=== PATIENT | female | born 1945 | race Caucasian/White ===

== ENCOUNTER 2022-02-07 20:42 | Inpatient (IN) | payer MEDICARE, OTHER ==
[2022-02-08] MEDS: Sodium Chloride 0.9% 1,000 ML IV SCH ×2 (01:04→13:00)
[2022-02-08] MEDS ORDERED: Ondansetron PF 4 MG/2 ML Vial IVP PRN (01:36)
[2022-02-08] MEDS ORDERED: Acetaminophen 325 MG TAB PO PRN (01:36)
[2022-02-08] MEDS ORDERED: Ondansetron ODT 4 MG TAB PO PRN (01:36)
[2022-02-08] MEDS ORDERED: Dextrose 5% in Water 1,000 ML IV PRN (01:36)
[2022-02-08] MEDS ORDERED: Acetaminophen 325 MG Suppository PR PRN (01:36)
[2022-02-08] MEDS ORDERED: Dextrose 50% Abboject 50 ML SYRINGE SLOW IVP PRN (01:36)
[2022-02-08] MEDS ORDERED: HumaLOG 300 UNITS/3 ML VIAL SC PRN ×2 (01:36)
[2022-02-08 03:03] LABS: #Lymphocytes 1.6 thou/uL (1.20-3.40); #Monocytes 1.1 thou/uL (0.11-0.59); #Neutrophils 6.7 thou/uL (1.40-6.50); %Basophils 0.5 % (0.0-1.0); %Eosinophils 0.2 % (0.0-10.0); %Monocytes 11.6 % (0.0-10.0); %Neutrophils 70.7 % (42.0-75.0); Mean Corpuscular HGB CONC 32.9 g/dL (32.0-36.0); Mean Corpuscular Hemoglobin 31.1 pg (27.0-31.0); Mean Corpuscular Volume 94.7 fL (78.0-98.0); Mean Platelet Volume 8.1 fL (7.4-10.4); Platelet Count 210 thou/uL (130-400); RBC Distribution Width 13.3 % (11.5-14.5); Red Blood Cell (RBC) Count 2.25 mill/uL (4.20-5.40); White Blood Cell (WBC) Count 9.5 thou/uL (4.8-10.8)
[2022-02-08 03:25] LABS: Anion Gap 13 mmol/L (10-20); BUN (Urea Nitrogen) 48 mg/dL (9.8-20.1); Calc. Creatinine Clearance 0 mL/min (70-130); Calcium 8.5 mg/dL (7.8-10.44); Carbon Dioxide 18 mmol/L (23-31); Chloride 112 mmol/L (98-107); Estimated GFR 64; Glucose 176 mg/dL (83-110); Potassium 4.1 mmol/L (3.5-5.1); Sodium 139 mmol/L (136-145)
[2022-02-08] MEDS: Pantoprazole 40 MG VIAL IVP SCH ×2 (07:24→20:01)
[2022-02-08] MEDS ORDERED: FLU VACC QS2022-23(65YR UP)/PF 240 MCG/0.7 ML SYRINGE IM ONE (09:00)
[2022-02-08 10:22] LABS: Hemoglobin 6.8 g/dL (12.0-16.0)
[2022-02-08] MEDS ORDERED: Fentanyl 100 MCG/2 ML VIAL ONE (14:49)
[2022-02-08] MEDS ORDERED: PHENYLEPHRINE-NS 100 MCG/ML 10 ML SYRINGE ONE (15:04)
[2022-02-08] MEDS ORDERED: PROPOFOL 200 MG/20 ML VIAL ONE (15:04)
[2022-02-08] MEDS ORDERED: GoLYTELY 4,000 ml Bottle PO SCH (16:06)
[2022-02-08 16:32] LABS: Hemoglobin 7.6 g/dL (12.0-16.0); Platelet Count 174 thou/uL (130-400)
[2022-02-09] MEDS: Sodium Chloride 0.9% 1,000 ML IV SCH ×3 (02:38→16:52)
[2022-02-09] MEDS: Pantoprazole 40 MG VIAL IVP SCH (07:56)
[2022-02-09 08:22] LABS: Hemoglobin 7.6 g/dL (12.0-16.0)
[2022-02-09 08:53] LABS: Anion Gap 13 mmol/L (10-20); BUN (Urea Nitrogen) 29 mg/dL (9.8-20.1); Calc. Creatinine Clearance 0 mL/min (70-130); Calcium 8.4 mg/dL (7.8-10.44); Carbon Dioxide 20 mmol/L (23-31); Chloride 113 mmol/L (98-107); Estimated GFR 71; Glucose 190 mg/dL (83-110); Potassium 3.8 mmol/L (3.5-5.1); Sodium 142 mmol/L (136-145)
[2022-02-09] MEDS ORDERED: PROPOFOL 200 MG/20 ML VIAL ONE (11:09)
[2022-02-09] MEDS ORDERED: Ondansetron HCl/PF 4 MG/2 ML Vial IVP PRN (11:19)
[2022-02-09 12:17] VITALS: BMI 33.0
[2022-02-09] MEDS ORDERED: Iron, Sodium Ferric Gluconate 250 MG in Sodium Chloride 0.9% 250 ML 250 ML IVPB SCH (14:00)
[2022-02-09] MEDS: Labetalol HCl 100 MG TAB PO SCH (20:41)
[2022-02-09] MEDS ORDERED: NIFEdipine XL 60 MG TAB PO SCH (21:00)
[2022-02-09] MEDS ORDERED: Cyanocobalamin (Vitamin B-12) 1,000 MCG TAB PO SCH (21:00)
[2022-02-09] MEDS: traMADol HCl 50 MG TAB PO PRN (21:20)
[2022-02-10] MEDS: traMADol HCl 50 MG TAB PO PRN ×2 (06:09→15:07)
[2022-02-10 06:56] LABS: Anion Gap 13 mmol/L (10-20); BUN (Urea Nitrogen) 26 mg/dL (9.8-20.1); Calc. Creatinine Clearance 74 mL/min (70-130); Calcium 8.2 mg/dL (7.8-10.44); Carbon Dioxide 20 mmol/L (23-31); Chloride 110 mmol/L (98-107); Estimated GFR 70; Glucose 181 mg/dL (83-110); Potassium 3.5 mmol/L (3.5-5.1); Sodium 139 mmol/L (136-145)
[2022-02-10 07:20] LABS: Hemoglobin 7.2 g/dL (12.0-16.0); Mean Corpuscular HGB CONC 32.2 g/dL (32.0-36.0); Mean Corpuscular Hemoglobin 29.7 pg (27.0-31.0); Mean Corpuscular Volume 92.4 fl (78.0-98.0); Mean Platelet Volume 9.2 fL (7.4-10.4); Platelet Count 171 thou/uL (130-400); RBC Distribution Width 19.3 % (11.5-14.5); Red Blood Cell (RBC) Count 2.42 mill/uL (4.20-5.40); White Blood Cell (WBC) Count 12.3 thou/uL (4.8-10.8)
[2022-02-10 07:56] LABS: Anisocytosis MODERATE=16-30 cells (100X) (0-5/hpf); Band 4 % (5-11); Lymphocytes 20 % (21-51); MDiff Complete? YES; Metamyelocyte 1 % (0-0); Monocytes 6 % (0-10); Neutrophil 67 % (42-75); Nucleated RBC 3 % (0); Platelet Morphology Comment Appears Adequate; Polychromasia MODERATE = 3-4 cells (100X) (0-2/hpf); Reactive Lymphocytes 1 % (0-10)
[2022-02-10] MEDS ORDERED: Pioglitazone HCl 15 MG TAB PO SCH (09:00)
[2022-02-10] MEDS ORDERED: Atorvastatin Calcium 40 MG TAB PO SCH (09:00)
[2022-02-10] MEDS ORDERED: Cholecalciferol 1,000 UNITS (25 MCG) TAB PO SCH (09:00)
[2022-02-10] MEDS: Labetalol HCl 100 MG TAB PO SCH (09:35)
[2022-02-10 14:04] LABS: Bacteria/HPF None Seen HPF (None Seen); Bilirubin Negative (Negative); Blood, Urine Negative (Negative); Clarity Clear (Clear); Glucose, Urine (Dipstick) Normal (Negative); Ketone, Urine Negative (Negative); Leukocyte 500 Leu/uL (Negative); Nitrite Negative (Negative); Protein, Urine (Dipstick) 50 mg/dL (Neg-Trace); RBC/HPF 0-3 HPF (0-3); Specific Gravity, Urine 1.028 (1.002-1.036); Urobilinogen Normal mg/dL (Less than 2); WBC/HPF 21-50 HPF (0-3)
[2022-02-10 14:07] LABS: Urine Culture Reflex No No
[2022-02-10 17:45] VITALS: BP 143/81; TEMP 97.9
== END 2022-02-10 18:27 | disposition home or self-care (01) | DRG 378 ==
LOC: T4-B 23:14
PROVIDERS: ADMIT Student in an Organized Health Care Education/Training Program; ATTEND Hospitalist
PROC: 0DB68ZX Excision of Stomach, Via Natural or Artificial Opening Endoscopic, Diagnostic (ICD-10-PCS; 2022-02-08)
PROC: 0DJD8ZZ Inspection of Lower Intestinal Tract, Via Natural or Artificial Opening Endoscopic (ICD-10-PCS; 2022-02-09)
PROC: 30233N1 Transfusion of Nonautologous Red Blood Cells into Peripheral Vein, Percutaneous Approach (ICD-10-PCS; principal; 2022-02-10)
DX: K25.4 Chronic or unspecified gastric ulcer with hemorrhage (principal); D62 Acute posthemorrhagic anemia; N39.0 Urinary tract infection, site not specified; I10 Essential (primary) hypertension; E11.9 Type 2 diabetes mellitus without complications; K21.9 Gastro-esophageal reflux disease without esophagitis; E66.9 Obesity, unspecified; G89.29 Other chronic pain; M54.50 Low back pain, unspecified; Z79.82 Long term (current) use of aspirin; Z79.84 Long term (current) use of oral hypoglycemic drugs; Z79.899 Other long term (current) drug therapy; Z88.8 Allergy status to other drugs, medicaments and biological substances; Z88.6 Allergy status to analgesic agent; Z68.33 Body mass index [BMI] 33.0-33.9, adult; K44.9 Diaphragmatic hernia without obstruction or gangrene; K57.30 Diverticulosis of large intestine without perforation or abscess without bleeding
CPT/HCPCS: 36415; 36416; 36430; 71045; 80048; 81001; 85014; 85018; 85025; 86850; 86900; 86901; 88305; C9113; J2405; J2704; J2916; J3010; J7050; P9016

== ENCOUNTER 2023-02-18 18:58 | Inpatient (IN) | payer MEDICARE, OTHER ==
[2023-02-18] MEDS ORDERED: HYDROcodone/Acetaminophen 5/325 mg Tablet ONE (19:49)
[2023-02-18 19:56] LABS: #Basophils 0.1 thou/uL (0.0-0.2); #Eosinphils 0.1 thou/uL (0.0-0.7); #Monocytes 0.7 thou/uL (0.11-0.59); #Neutrophils 8.9 thou/uL (1.40-6.50); %Basophils 0.5 % (0.0-1.0); %Eosinophils 0.5 % (0.0-10.0); %Lymphocytes 10.5 % (21.0-51.0); %Monocytes 6.5 % (0.0-10.0); %Neutrophils 81.2 % (42.0-75.0); Hematocrit 42.5 % (36.0-47.0); Hemoglobin 13.7 g/dL (12.0-16.0); Mean Corpuscular HGB CONC 32.2 g/dL (32.0-36.0); Mean Corpuscular Hemoglobin 29.7 pg (27.0-31.0); Mean Corpuscular Volume 92.2 fl (78.0-98.0); Mean Platelet Volume 10.1 fL (7.4-10.4); Platelet Count 310 10x3/uL (130-400); RBC Distribution Width 14.4 % (11.5-14.5); Red Blood Cell (RBC) Count 4.61 mill/uL (4.20-5.40)
[2023-02-18 20:09] LABS: INR-International Normal Ratio 1.2; PTT 28.8 sec (22.9-36.1); Prothrombin Time 16.1 sec (12.0-14.7)
[2023-02-18 20:19] LABS: ALT (SGPT) 20 U/L (8-55); AST (SGOT) 20 U/L (5-34); Albumin 4.7 g/dL (3.4-4.8); Alkaline Phosphatase 101 U/L (40-110); Anion Gap 18 mmol/L (10-20); BUN (Urea Nitrogen) 32 mg/dL (9.8-20.1); Bilirubin, Total 0.4 mg/dL (0.2-1.2); Calc. Creatinine Clearance 0 mL/min (70-130); Calcium 9.5 mg/dL (7.8-10.44); Carbon Dioxide 23 mmol/L (23-31); Chloride 104 mmol/L (98-107); Estimated GFR 42; Globulin 2.4 g/dL (2.4-3.5); Glucose 183 mg/dL (83-110); Potassium 4.1 mmol/L (3.5-5.1); Protein, Total 7.1 g/dL (5.8-8.1); Sodium 141 mmol/L (136-145)
[2023-02-18] MEDS ORDERED: Morphine 4 MG/ML VIAL ONE (21:58)
[2023-02-18 22:52] VITALS: BMI 33.5
[2023-02-18] MEDS ORDERED: hydrALAZINE 20 MG/ML VIAL SLOW IVP PRN ×2 (23:45→23:48)
[2023-02-18] MEDS ORDERED: Morphine 2 MG/ML VIAL SLOW IVP PRN (23:45)
[2023-02-19] MEDS: Ketorolac Tromethamine 30 MG/ML VIAL IVP SCH ×4 (00:13→23:34)
[2023-02-19] MEDS: Acetaminophen 500 MG TAB PO SCH ×5 (00:14→23:33)
[2023-02-19] MEDS: traMADol HCl 50 MG TAB PO SCH ×5 (00:14→23:34)
[2023-02-19] MEDS: hydrALAZINE 10 MG TAB PO PRN ×2 (00:29→21:15)
[2023-02-19] MEDS: Morphine 2 MG/ML VIAL SLOW IVP PRN ×2 (02:04→06:21)
[2023-02-19] MEDS ORDERED: Ondansetron PF 4 MG/2 ML Vial IVP PRN (05:45)
[2023-02-19] MEDS ORDERED: Ipratropium/Albuterol 3 ML NEB NEB PRN (05:45)
[2023-02-19] MEDS ORDERED: traMADol HCl 50 MG TAB PO PRN (05:47)
[2023-02-19] MEDS: Sodium Chloride 0.9% 1,000 ML IV SCH ×3 (06:20→22:32)
[2023-02-19] MEDS: NIFEdipine XL 30 MG ER.TAB PO SCH (08:25)
[2023-02-19] MEDS: Amiodarone 200 MG TAB PO SCH (08:26)
[2023-02-19] MEDS: Atorvastatin Calcium 40 MG TAB PO SCH (08:26)
[2023-02-19] MEDS: Senokot S 8.6-50 MG TAB PO SCH ×2 (08:26→21:11)
[2023-02-19] MEDS: Famotidine/PF 20 mg/2ml Vial SLOW IVP SCH (08:27)
[2023-02-19] MEDS: Polyethylene Glycol 3350 17 GM Packet PO SCH (08:27)
[2023-02-20 05:36] LABS: #Basophils 0.1 thou/uL (0.0-0.2); #Eosinphils 0.4 thou/uL (0.0-0.7); #Neutrophils 6.5 thou/uL (1.40-6.50); %Basophils 0.7 % (0.0-1.0); %Eosinophils 4.3 % (0.0-10.0); %Lymphocytes 8.5 % (21.0-51.0); %Monocytes 11.4 % (0.0-10.0); %Neutrophils 74.6 % (42.0-75.0); Mean Corpuscular HGB CONC 31.2 g/dL (32.0-36.0); Mean Corpuscular Hemoglobin 29.5 pg (27.0-31.0); Mean Corpuscular Volume 94.7 fl (78.0-98.0); Mean Platelet Volume 10.3 fL (7.4-10.4); Platelet Count 204 10x3/uL (130-400); RBC Distribution Width 14.6 % (11.5-14.5); Red Blood Cell (RBC) Count 3.59 mill/uL (4.20-5.40); White Blood Cell (WBC) Count 8.8 10x3/uL (4.8-10.8)
[2023-02-20 05:51] LABS: INR-International Normal Ratio 1.1; PTT 36.8 sec (22.9-36.1); Prothrombin Time 14.7 sec (12.0-14.7)
[2023-02-20] MEDS: Acetaminophen 500 MG TAB PO SCH ×3 (05:51→17:14)
[2023-02-20] MEDS: Sodium Chloride 0.9% 1,000 ML IV SCH ×3 (05:51→21:48)
[2023-02-20] MEDS: traMADol HCl 50 MG TAB PO SCH ×3 (05:51→17:15)
[2023-02-20 06:01] LABS: Anion Gap 16 mmol/L (10-20); BUN (Urea Nitrogen) 26 mg/dL (9.8-20.1); Calc. Creatinine Clearance 59 mL/min (70-130); Calcium 8.5 mg/dL (7.8-10.44); Carbon Dioxide 22 mmol/L (23-31); Chloride 108 mmol/L (98-107); Estimated GFR 58; Glucose 177 mg/dL (83-110); Potassium 3.9 mmol/L (3.5-5.1); Sodium 142 mmol/L (136-145)
[2023-02-20 06:26] LABS: Hemoglobin 10.6 g/dL (12.0-16.0)
[2023-02-20] MEDS: Ketorolac Tromethamine 30 MG/ML VIAL IVP SCH ×2 (08:15→15:09)
[2023-02-20] MEDS: Famotidine/PF 20 mg/2ml Vial SLOW IVP SCH (08:16)
[2023-02-20] MEDS: Amiodarone 200 MG TAB PO SCH (08:16)
[2023-02-20] MEDS: NIFEdipine XL 30 MG ER.TAB PO SCH (08:16)
[2023-02-20] MEDS: Polyethylene Glycol 3350 17 GM Packet PO SCH (08:16)
[2023-02-20] MEDS: Atorvastatin Calcium 40 MG TAB PO SCH (08:16)
[2023-02-20] MEDS: Senokot S 8.6-50 MG TAB PO SCH ×2 (08:16→21:34)
[2023-02-20] MEDS ORDERED: CEFAZOLIN 2 GM in Sodium Chloride 0.9% 100 ML IVPB SCH (08:45)
[2023-02-20] MEDS ORDERED: Sodium Chloride 0.9% 100 ML ONE (09:37)
[2023-02-20] MEDS ORDERED: CEFAZOLIN 2 GM VIAL ONE (09:37)
[2023-02-20] MEDS: Losartan 25 MG TAB PO SCH ×2 (10:02→21:34)
[2023-02-20] MEDS ORDERED: Fentanyl 250 MCG/5 ML VIAL ONE (10:35)
[2023-02-20] MEDS ORDERED: Lidocaine 1% PF 5 ML VIAL ONE (10:50)
[2023-02-20] MEDS ORDERED: Rocuronium Bromide 10 MG/ML (10ML VIAL) ONE (10:50)
[2023-02-20] MEDS ORDERED: Ketorolac Tromethamine 30 MG/ML VIAL ONE (10:50)
[2023-02-20] MEDS ORDERED: Dexamethasone 20 MG/5 ML VIAL ONE (10:50)
[2023-02-20] MEDS ORDERED: PROPOFOL 200 MG/20 ML VIAL ONE (10:50)
[2023-02-20] MEDS ORDERED: ePHEDrine Sulfate 50 MG/10 ML VIAL ONE (10:50)
[2023-02-20] MEDS ORDERED: Ondansetron PF 4 MG/2 ML Vial ONE (10:50)
[2023-02-20] MEDS ORDERED: SUGAMMADEX SODIUM 200 MG/2 ML VIAL ONE (11:29)
[2023-02-20] MEDS ORDERED: Promethazine HCl 25 MG/ML VIAL IM PRN (11:32)
[2023-02-20] MEDS ORDERED: Ketorolac Tromethamine 30 MG/ML VIAL IVP PRN (11:32)
[2023-02-20] MEDS ORDERED: Ondansetron HCl/PF 4 MG/2 ML Vial IVP PRN (11:32)
[2023-02-20] MEDS ORDERED: Losartan 25 MG TAB PO SCH (15:00)
[2023-02-20] MEDS ORDERED: hydrALAZINE 20 MG/ML VIAL SLOW IVP SCH (15:00)
[2023-02-20] MEDS: CEFAZOLIN 2 GM in Sodium Chloride 0.9% 100 ML IVPB SCH (17:14)
[2023-02-21] MEDS: Ketorolac Tromethamine 30 MG/ML VIAL IVP SCH ×3 (00:01→15:09)
[2023-02-21] MEDS: CEFAZOLIN 2 GM in Sodium Chloride 0.9% 100 ML IVPB SCH (01:58)
[2023-02-21] MEDS: traMADol HCl 50 MG TAB PO SCH ×2 (06:11)
[2023-02-21] MEDS: Acetaminophen 500 MG TAB PO SCH ×2 (06:11)
[2023-02-21] MEDS: Sodium Chloride 0.9% 1,000 ML IV SCH (07:35)
[2023-02-21] MEDS: Losartan 25 MG TAB PO SCH ×2 (08:20→21:19)
[2023-02-21] MEDS: Polyethylene Glycol 3350 17 GM Packet PO SCH (08:20)
[2023-02-21] MEDS: NIFEdipine XL 30 MG ER.TAB PO SCH (08:20)
[2023-02-21] MEDS: Amiodarone 200 MG TAB PO SCH (08:20)
[2023-02-21] MEDS: Senokot S 8.6-50 MG TAB PO SCH ×2 (08:20→21:18)
[2023-02-21] MEDS: Famotidine/PF 20 mg/2ml Vial SLOW IVP SCH (08:21)
[2023-02-21] MEDS: Atorvastatin Calcium 40 MG TAB PO SCH (08:21)
[2023-02-21] MEDS: Acetaminophen/Codeine 30-300mg Tablet PO SCH ×3 (09:29→21:19)
[2023-02-21] MEDS: Acetaminophen 325 MG TAB PO SCH ×3 (09:32→21:20)
[2023-02-21] MEDS: Gabapentin 100 MG CAP PO SCH ×2 (15:08→21:20)
[2023-02-22] MEDS: Ketorolac Tromethamine 30 MG/ML VIAL IVP SCH (00:02)
[2023-02-22] MEDS: Acetaminophen/Codeine 30-300mg Tablet PO SCH ×4 (04:41→23:01)
[2023-02-22] MEDS: Acetaminophen 325 MG TAB PO SCH ×4 (04:44→23:04)
[2023-02-22 07:51] LABS: #Eosinphils 0.4 thou/uL (0.0-0.7); #Monocytes 0.9 thou/uL (0.11-0.59); #Neutrophils 4.8 thou/uL (1.40-6.50); %Basophils 0.6 % (0.0-1.0); %Eosinophils 5.7 % (0.0-10.0); %Lymphocytes 13.1 % (21.0-51.0); %Monocytes 12.4 % (0.0-10.0); %Neutrophils 67.5 % (42.0-75.0); Hemoglobin 6.5 g/dL (12.0-16.0); Mean Corpuscular Hemoglobin 29.7 pg (27.0-31.0); Mean Corpuscular Volume 95.9 fl (78.0-98.0); Mean Platelet Volume 10.8 fL (7.4-10.4); Platelet Count 186 10x3/uL (130-400); RBC Distribution Width 15.2 % (11.5-14.5); Red Blood Cell (RBC) Count 2.19 mill/uL (4.20-5.40)
[2023-02-22] MEDS: Atorvastatin Calcium 40 MG TAB PO SCH (09:05)
[2023-02-22] MEDS: Famotidine/PF 20 mg/2ml Vial SLOW IVP SCH (09:05)
[2023-02-22] MEDS: Senokot S 8.6-50 MG TAB PO SCH ×2 (09:05→20:48)
[2023-02-22] MEDS: Amiodarone 200 MG TAB PO SCH (09:06)
[2023-02-22] MEDS: Gabapentin 100 MG CAP PO SCH ×3 (09:07→20:48)
[2023-02-22] MEDS: Losartan 25 MG TAB PO SCH ×2 (09:07→20:48)
[2023-02-22] MEDS: NIFEdipine XL 30 MG ER.TAB PO SCH (09:08)
[2023-02-22] MEDS: Polyethylene Glycol 3350 17 GM Packet PO SCH (09:17)
[2023-02-22] MEDS ORDERED: Furosemide 20 MG TAB PO SCH (11:15)
[2023-02-22] MEDS: Furosemide 20 MG TAB PO SCH (14:23)
[2023-02-22 19:14] LABS: #Basophils 0.1 thou/uL (0.0-0.2); #Eosinphils 0.5 thou/uL (0.0-0.7); #Monocytes 1.2 thou/uL (0.11-0.59); #Neutrophils 5.7 thou/uL (1.40-6.50); %Basophils 0.7 % (0.0-1.0); %Eosinophils 5.5 % (0.0-10.0); %Lymphocytes 15.2 % (21.0-51.0); %Monocytes 13.6 % (0.0-10.0); %Neutrophils 63.9 % (42.0-75.0); Hematocrit 28.3 % (36.0-47.0); Hemoglobin 8.8 g/dL (12.0-16.0); Mean Corpuscular HGB CONC 31.1 g/dL (32.0-36.0); Mean Corpuscular Hemoglobin 29.8 pg (27.0-31.0); Mean Corpuscular Volume 95.9 fl (78.0-98.0); Mean Platelet Volume 10.5 fL (7.4-10.4); Platelet Count 228 10x3/uL (130-400); RBC Distribution Width 15.9 % (11.5-14.5); Red Blood Cell (RBC) Count 2.95 mill/uL (4.20-5.40); White Blood Cell (WBC) Count 8.9 10x3/uL (4.8-10.8)
[2023-02-22] MEDS: Cyanocobalamin (Vitamin B-12) 1,000 MCG TAB PO SCH (20:48)
[2023-02-22] MEDS ORDERED: Apixaban 5 MG TAB PO SCH (21:00)
[2023-02-23] MEDS: Acetaminophen 325 MG TAB PO SCH ×4 (04:14→21:57)
[2023-02-23] MEDS: Acetaminophen/Codeine 30-300mg Tablet PO SCH ×4 (04:15→21:57)
[2023-02-23 06:13] LABS: #Eosinphils 0.4 thou/uL (0.0-0.7); #Monocytes 1.1 thou/uL (0.11-0.59); #Neutrophils 4.7 thou/uL (1.40-6.50); %Basophils 0.5 % (0.0-1.0); %Eosinophils 5.4 % (0.0-10.0); %Lymphocytes 14.3 % (21.0-51.0); %Monocytes 14.4 % (0.0-10.0); %Neutrophils 63.8 % (42.0-75.0); Hematocrit 24.3 % (36.0-47.0); Hemoglobin 7.7 g/dL (12.0-16.0); Mean Corpuscular HGB CONC 31.7 g/dL (32.0-36.0); Mean Corpuscular Hemoglobin 29.7 pg (27.0-31.0); Mean Corpuscular Volume 93.8 fl (78.0-98.0); Mean Platelet Volume 10.4 fL (7.4-10.4); Platelet Count 198 10x3/uL (130-400); Red Blood Cell (RBC) Count 2.59 mill/uL (4.20-5.40); White Blood Cell (WBC) Count 7.4 10x3/uL (4.8-10.8)
[2023-02-23] MEDS: Gabapentin 100 MG CAP PO SCH ×3 (09:04→20:12)
[2023-02-23] MEDS: Losartan 25 MG TAB PO SCH ×2 (09:05→20:12)
[2023-02-23] MEDS: Aspirin Chewable 81 MG TAB PO SCH (09:05)
[2023-02-23] MEDS: Furosemide 20 MG TAB PO SCH ×2 (09:05→15:16)
[2023-02-23] MEDS: Cholecalciferol 1,000 UNITS (25 MCG) TAB PO SCH (09:05)
[2023-02-23] MEDS: Polyethylene Glycol 3350 17 GM Packet PO SCH (09:06)
[2023-02-23] MEDS: Atorvastatin Calcium 40 MG TAB PO SCH (09:06)
[2023-02-23] MEDS: Amiodarone 200 MG TAB PO SCH (09:06)
[2023-02-23] MEDS: Senokot S 8.6-50 MG TAB PO SCH ×2 (09:06→20:12)
[2023-02-23] MEDS: NIFEdipine XL 30 MG ER.TAB PO SCH (09:06)
[2023-02-23 18:55] LABS: Anion Gap 15 mmol/L (10-20); BUN (Urea Nitrogen) 28 mg/dL (9.8-20.1); Calc. Creatinine Clearance 67 mL/min (70-130); Calcium 8.3 mg/dL (7.8-10.44); Carbon Dioxide 22 mmol/L (23-31); Chloride 105 mmol/L (98-107); Estimated GFR 66; Glucose 161 mg/dL (83-110); Magnesium 2.2 mg/dL (1.6-2.6); Phosphorus 3.8 mg/dL (2.3-4.7); Potassium 4.3 mmol/L (3.5-5.1); Sodium 138 mmol/L (136-145)
[2023-02-23] MEDS: Cyanocobalamin (Vitamin B-12) 1,000 MCG TAB PO SCH (20:12)
[2023-02-23] MEDS: Cyclobenzaprine 10 MG TAB PO PRN (20:16)
[2023-02-24] MEDS: Acetaminophen/Codeine 30-300mg Tablet PO SCH ×5 (03:51→23:00)
[2023-02-24] MEDS: Acetaminophen 325 MG TAB PO SCH ×5 (03:52→23:00)
[2023-02-24] MEDS ORDERED: Morphine 2 MG/ML VIAL SLOW IVP PRN (04:28)
[2023-02-24] MEDS ORDERED: Ketorolac Tromethamine 30 MG/ML VIAL IVP SCH (07:56)
[2023-02-24 08:11] LABS: Anion Gap 19 mmol/L (10-20); BUN (Urea Nitrogen) 28 mg/dL (9.8-20.1); Calc. Creatinine Clearance 66 mL/min (70-130); Calcium 8.6 mg/dL (7.8-10.44); Carbon Dioxide 15 mmol/L (23-31); Chloride 106 mmol/L (98-107); Estimated GFR 66; Glucose 178 mg/dL (83-110); Potassium 5.3 mmol/L (3.5-5.1); Sodium 135 mmol/L (136-145)
[2023-02-24] MEDS ORDERED: Magnesium Citrate 300 ML BOT PO SCH (08:30)
[2023-02-24] MEDS: Amiodarone 200 MG TAB PO SCH (09:12)
[2023-02-24] MEDS: Aspirin Chewable 81 MG TAB PO SCH (09:13)
[2023-02-24] MEDS: Senokot S 8.6-50 MG TAB PO SCH ×2 (09:13→20:30)
[2023-02-24] MEDS: Polyethylene Glycol 3350 17 GM Packet PO SCH (09:13)
[2023-02-24] MEDS: Gabapentin 100 MG CAP PO SCH ×3 (09:15→20:28)
[2023-02-24] MEDS: Losartan 25 MG TAB PO SCH ×2 (09:15→20:30)
[2023-02-24] MEDS: Atorvastatin Calcium 40 MG TAB PO SCH (09:15)
[2023-02-24] MEDS: Furosemide 20 MG TAB PO SCH ×2 (09:15→15:13)
[2023-02-24] MEDS: Cholecalciferol 1,000 UNITS (25 MCG) TAB PO SCH (09:15)
[2023-02-24] MEDS: NIFEdipine XL 30 MG ER.TAB PO SCH (09:16)
[2023-02-24 09:26] LABS: Phosphorus 4.5 mg/dL (2.3-4.7)
[2023-02-24 09:27] LABS: Magnesium 2.3 mg/dL (1.6-2.6)
[2023-02-24 10:55] LABS: #Eosinphils 0.3 thou/uL (0.0-0.7); #Neutrophils 4.3 thou/uL (1.40-6.50); %Basophils 0.3 % (0.0-1.0); %Eosinophils 4.5 % (0.0-10.0); %Lymphocytes 15.9 % (21.0-51.0); %Monocytes 14.1 % (0.0-10.0); %Neutrophils 63.3 % (42.0-75.0); Hematocrit 27.2 % (36.0-47.0); Hemoglobin 8.3 g/dL (12.0-16.0); Mean Corpuscular HGB CONC 30.5 g/dL (32.0-36.0); Mean Corpuscular Hemoglobin 29.4 pg (27.0-31.0); Mean Corpuscular Volume 96.5 fl (78.0-98.0); Mean Platelet Volume 10.4 fL (7.4-10.4); Platelet Count 250 10x3/uL (130-400); RBC Distribution Width 15.8 % (11.5-14.5); Red Blood Cell (RBC) Count 2.82 mill/uL (4.20-5.40); White Blood Cell (WBC) Count 6.7 10x3/uL (4.8-10.8)
[2023-02-24] MEDS: Ketorolac Tromethamine 30 MG/ML VIAL IVP SCH ×2 (11:39→17:36)
[2023-02-24] MEDS: Apixaban 5 MG TAB PO SCH (20:28)
[2023-02-24] MEDS: Cyanocobalamin (Vitamin B-12) 1,000 MCG TAB PO SCH (20:28)
[2023-02-24] MEDS: Cyclobenzaprine 10 MG TAB PO PRN (20:30)
[2023-02-24] MEDS: Melatonin 3 MG TAB PO SCH (20:31)
[2023-02-25] MEDS: Ketorolac Tromethamine 30 MG/ML VIAL IVP SCH ×2 (01:25→05:48)
[2023-02-25] MEDS: Acetaminophen 325 MG TAB PO SCH ×5 (04:45→23:16)
[2023-02-25] MEDS: Acetaminophen/Codeine 30-300mg Tablet PO SCH ×4 (04:45→23:16)
[2023-02-25 04:51] LABS: Hemoglobin 8.6 g/dL (12.0-16.0); Mean Corpuscular HGB CONC 30.7 g/dL (32.0-36.0); Mean Corpuscular Hemoglobin 29.8 pg (27.0-31.0); Mean Corpuscular Volume 96.9 fl (78.0-98.0); Mean Platelet Volume 10.6 fL (7.4-10.4); Platelet Count 282 10x3/uL (130-400); RBC Distribution Width 15.9 % (11.5-14.5); Red Blood Cell (RBC) Count 2.89 mill/uL (4.20-5.40); White Blood Cell (WBC) Count 8.5 10x3/uL (4.8-10.8)
[2023-02-25 04:57] LABS: Delete Auto Diff?? YES; Manual Diff?? YES
[2023-02-25 05:00] LABS: Actual Bicarbonate (HCO3a) 24.1 mEq/L (22-28); Base Excess (BEa) 0.2 mEq/L (-2.0 to +3.0); CO2 Tension 36.2 mmHg (35.0-45.0); Calcium, Ionized (arterial) 1.15 mmol/L (1.12-1.30); Carboxyhemoglobin (COHb) 0.7 gm% (0.0-3.0); Hematocrit-ABG 27 % (36.0-47.0); Hemoglobin (Hb) 9.2 g/dL (12.0-16.0); O2 Tension (PaO2), arterial 216.9 mmHg (> 60.0); Potassium - ABG Lab 4.75 mmol/L (3.70-5.30); pH, Arterial 7.442 (7.35-7.45)
[2023-02-25 05:02] LABS: Puncture Site LRA
[2023-02-25 05:09] LABS: Lactic Acid 1.8 mmol/L (0.5-2.2)
[2023-02-25 05:15] LABS: ALT (SGPT) 13 U/L (8-55); AST (SGOT) 20 U/L (5-34); Albumin 3.4 g/dL (3.4-4.8); Alkaline Phosphatase 102 U/L (40-110); Anion Gap 14 mmol/L (10-20); BUN (Urea Nitrogen) 37 mg/dL (9.8-20.1); Bilirubin, Total 1.4 mg/dL (0.2-1.2); Calc. Creatinine Clearance 49 mL/min (70-130); Carbon Dioxide 26 mmol/L (23-31); Chloride 100 mmol/L (98-107); Estimated GFR 45; Globulin 2.4 g/dL (2.4-3.5); Glucose 208 mg/dL (83-110); Protein, Total 5.8 g/dL (5.8-8.1); Sodium 135 mmol/L (136-145)
[2023-02-25 05:18] LABS: Troponin I 0.011 ng/mL (< 0.028)
[2023-02-25] MEDS ORDERED: Dextrose 50% Abboject 50 ML SYRINGE SLOW IVP PRN (05:20)
[2023-02-25] MEDS ORDERED: Glucagon 1 MG/ML KIT IM PRN (05:20)
[2023-02-25] MEDS ORDERED: HumaLOG 300 UNITS/3 ML VIAL SC PRN (05:20)
[2023-02-25] MEDS ORDERED: Dextrose 5% in Water 1,000 ML IV PRN (05:20)
[2023-02-25] MEDS ORDERED: Sodium Chloride 0.45% 1,000 ML IV SCH (05:30)
[2023-02-25 05:49] LABS: Band 13 % (5-11); CellaVision Operator ID LAB.GE; Hypochromia SLIGHT = 6-15 cells HPF (0-5); Lymphocytes 4 % (21-51); Macrocytosis SLIGHT = 6-15 cells HPF (0-5); Metamyelocyte 1 % (0-0); Monocytes 6 % (0-10); Neutrophil 75 % (42-75); Nucleated RBC (Manual Ct) 1 % (0); Platelet Adequacy Comment Platelets Normal; Polychromasia MODERATE = 3-4 cells HPF (0-2); Total Cell Count 101
[2023-02-25] MEDS: Polyethylene Glycol 3350 17 GM Packet PO SCH (09:25)
[2023-02-25] MEDS: NIFEdipine XL 30 MG ER.TAB PO SCH (09:26)
[2023-02-25] MEDS: Senokot S 8.6-50 MG TAB PO SCH ×2 (09:26→20:27)
[2023-02-25] MEDS: Aspirin Chewable 81 MG TAB PO SCH (09:26)
[2023-02-25] MEDS: Losartan 25 MG TAB PO SCH ×2 (09:27→20:28)
[2023-02-25] MEDS: Amiodarone 200 MG TAB PO SCH (09:28)
[2023-02-25] MEDS: Furosemide 20 MG TAB PO SCH ×2 (09:28→14:31)
[2023-02-25] MEDS: Gabapentin 100 MG CAP PO SCH ×2 (09:28→14:31)
[2023-02-25] MEDS: Cholecalciferol 1,000 UNITS (25 MCG) TAB PO SCH (09:28)
[2023-02-25] MEDS: Apixaban 5 MG TAB PO SCH ×2 (09:28→20:28)
[2023-02-25] MEDS: Atorvastatin Calcium 40 MG TAB PO SCH (09:29)
[2023-02-25] MEDS ORDERED: Iopamidol 370 76% 100 ML VIAL ONE (11:41)
[2023-02-25] MEDS: HumaLOG 300 UNITS/3 ML VIAL SC PRN ×2 (12:45→17:35)
[2023-02-25 14:56] LABS: Bilirubin Negative (Negative); Blood, Urine 1+ (Negative); CAUTI Indications for Culture Alt mental st,lethar; Clarity Clear (Clear); Glucose, Urine (Dipstick) Greater than 1000 mg/dL (Negative); Ketone, Urine Negative (Negative); Leukocyte 500 Leu/uL (Negative); Nitrite Negative (Negative); Protein, Urine (Dipstick) 20 mg/dL (Neg-Trace); Specific Gravity, Urine 1.035 (1.002-1.036); Urobilinogen Normal mg/dL (Less than 2); WBC/HPF 21-50 HPF (0-3); pH, Urine 5.5 (5.0-9.0)
[2023-02-25 15:05] LABS: Bacteria/HPF 1+ HPF (None Seen)
[2023-02-25 15:10] LABS: Urine Culture Reflex Yes Yes
[2023-02-25] MEDS: Cyanocobalamin (Vitamin B-12) 1,000 MCG TAB PO SCH (20:27)
[2023-02-25] MEDS: Melatonin 3 MG TAB PO SCH (20:28)
[2023-02-26] MEDS: hydrALAZINE 10 MG TAB PO PRN (00:23)
[2023-02-26] MEDS: Acetaminophen 325 MG TAB PO SCH ×6 (03:41→23:40)
[2023-02-26] MEDS: Acetaminophen/Codeine 30-300mg Tablet PO SCH ×5 (05:40→23:41)
[2023-02-26 06:14] LABS: #Eosinphils 0.1 thou/uL (0.0-0.7); #Monocytes 1.6 thou/uL (0.11-0.59); #Neutrophils 8.1 thou/uL (1.40-6.50); %Basophils 0.3 % (0.0-1.0); %Eosinophils 0.8 % (0.0-10.0); %Lymphocytes 6.6 % (21.0-51.0); %Monocytes 15.4 % (0.0-10.0); %Neutrophils 76.1 % (42.0-75.0); Hematocrit 23.9 % (36.0-47.0); Hemoglobin 7.3 g/dL (12.0-16.0); Mean Corpuscular HGB CONC 30.5 g/dL (32.0-36.0); Mean Corpuscular Hemoglobin 29.7 pg (27.0-31.0); Mean Corpuscular Volume 97.2 fl (78.0-98.0); Mean Platelet Volume 10.7 fL (7.4-10.4); Platelet Count 284 10x3/uL (130-400); RBC Distribution Width 16.5 % (11.5-14.5); Red Blood Cell (RBC) Count 2.46 mill/uL (4.20-5.40); White Blood Cell (WBC) Count 10.7 10x3/uL (4.8-10.8)
[2023-02-26 06:17] LABS: Manual Diff?? YES
[2023-02-26 06:43] LABS: Anisocytosis SLIGHT = 6-15 cells HPF (0-5); Band 30 % (5-11); CellaVision Operator ID LAB.CLH1; Hypochromia MODERATE=16-30 cells HPF (0-5); Lymphocytes 6 % (21-51); Monocytes 11 % (0-10); Neutrophil 53 % (42-75); Platelet Adequacy Comment Platelets Normal; Poikilocytosis SLIGHT = 6-15 cells HPF (0-5); Polychromasia SLIGHT = 2-3 cells HPF (0-2); Total Cell Count 66
[2023-02-26 06:48] LABS: Anion Gap 15 mmol/L (10-20); BUN (Urea Nitrogen) 46 mg/dL (9.8-20.1); Calc. Creatinine Clearance 46 mL/min (70-130); Calcium 8.1 mg/dL (7.8-10.44); Carbon Dioxide 24 mmol/L (23-31); Chloride 97 mmol/L (98-107); Estimated GFR 42; Glucose 193 mg/dL (83-110); Magnesium 3.9 mg/dL (1.6-2.6); Phosphorus 4.8 mg/dL (2.3-4.7); Potassium 5.4 mmol/L (3.5-5.1); Sodium 131 mmol/L (136-145)
[2023-02-26] MEDS ORDERED: Sodium Chloride 0.9% 1,000 ML IV SCH ×2 (08:45→17:15)
[2023-02-26] MEDS: Senokot S 8.6-50 MG TAB PO SCH ×2 (08:54→22:11)
[2023-02-26] MEDS: NIFEdipine XL 30 MG ER.TAB PO SCH (08:54)
[2023-02-26] MEDS: Polyethylene Glycol 3350 17 GM Packet PO SCH (08:54)
[2023-02-26] MEDS: Losartan 25 MG TAB PO SCH (08:54)
[2023-02-26] MEDS: Amiodarone 200 MG TAB PO SCH (08:55)
[2023-02-26] MEDS: Aspirin Chewable 81 MG TAB PO SCH (08:55)
[2023-02-26] MEDS: Apixaban 5 MG TAB PO SCH ×2 (08:55→22:05)
[2023-02-26] MEDS: Cholecalciferol 1,000 UNITS (25 MCG) TAB PO SCH (08:55)
[2023-02-26] MEDS: Atorvastatin Calcium 40 MG TAB PO SCH (08:56)
[2023-02-26] MEDS ORDERED: Cefdinir 300 MG CAP PO SCH (09:00)
[2023-02-26 15:07] LABS: Hematocrit 27.4 % (36.0-47.0); Hemoglobin 8.5 g/dL (12.0-16.0); Mean Corpuscular Hemoglobin 29.8 pg (27.0-31.0); Mean Corpuscular Volume 96.1 fl (78.0-98.0); Mean Platelet Volume 10.5 fL (7.4-10.4); Platelet Count 307 10x3/uL (130-400); RBC Distribution Width 16.4 % (11.5-14.5); Red Blood Cell (RBC) Count 2.85 mill/uL (4.20-5.40); White Blood Cell (WBC) Count 12.2 10x3/uL (4.8-10.8)
[2023-02-26] MEDS: HumaLOG 300 UNITS/3 ML VIAL SC PRN ×2 (15:07→17:43)
[2023-02-26 15:08] LABS: Delete Auto Diff?? YES; Manual Diff?? YES
[2023-02-26 15:28] LABS: Anion Gap 14 mmol/L (10-20); BUN (Urea Nitrogen) 43 mg/dL (9.8-20.1); Calc. Creatinine Clearance 51 mL/min (70-130); Calcium 8.5 mg/dL (7.8-10.44); Carbon Dioxide 23 mmol/L (23-31); Chloride 97 mmol/L (98-107); Estimated GFR 48; Glucose 198 mg/dL (83-110); Potassium 5.4 mmol/L (3.5-5.1); Sodium 129 mmol/L (136-145)
[2023-02-26 16:00] LABS: Anisocytosis SLIGHT = 6-15 cells HPF (0-5); Band 27 % (5-11); CellaVision Operator ID LAB.MJL; Lymphocytes 6 % (21-51); Monocytes 11 % (0-10); Neutrophil 55 % (42-75); Nucleated RBC (Manual Ct) 1 % (0); Ovalocytes SLIGHT = 2-5 cells HPF (0-1); Platelet Adequacy Comment Platelets Normal; Polychromasia MODERATE = 3-4 cells HPF (0-2); Total Cell Count 100
[2023-02-26] MEDS: Cyanocobalamin (Vitamin B-12) 1,000 MCG TAB PO SCH (22:05)
[2023-02-26] MEDS: Cefepime 1 GM in Sodium Chloride 0.9% 100 ML IVPB SCH (22:05)
[2023-02-26] MEDS: Melatonin 3 MG TAB PO SCH (22:05)
[2023-02-27] MEDS: Acetaminophen/Codeine 30-300mg Tablet PO SCH ×4 (06:36→23:23)
[2023-02-27] MEDS: Acetaminophen 325 MG TAB PO SCH ×4 (06:38→23:24)
[2023-02-27 06:46] LABS: Hematocrit 25.4 % (36.0-47.0); Hemoglobin 7.8 g/dL (12.0-16.0); Mean Corpuscular HGB CONC 30.7 g/dL (32.0-36.0); Mean Corpuscular Hemoglobin 29.2 pg (27.0-31.0); Mean Corpuscular Volume 95.1 fl (78.0-98.0); Mean Platelet Volume 10.7 fL (7.4-10.4); Platelet Count 323 10x3/uL (130-400); Red Blood Cell (RBC) Count 2.67 mill/uL (4.20-5.40); White Blood Cell (WBC) Count 13.6 10x3/uL (4.8-10.8)
[2023-02-27 06:48] LABS: Delete Auto Diff?? YES; Manual Diff?? YES
[2023-02-27] MEDS: HumaLOG 300 UNITS/3 ML VIAL SC PRN ×3 (06:51→18:21)
[2023-02-27 07:21] LABS: Anisocytosis SLIGHT = 6-15 cells HPF (0-5); Band 25 % (5-11); CellaVision Operator ID lab.dlt; Hypochromia SLIGHT = 6-15 cells HPF (0-5); Lymphocytes 7 % (21-51); Monocytes 5 % (0-10); Neutrophil 63 % (42-75); Platelet Adequacy Comment Platelets Normal; Poikilocytosis SLIGHT = 6-15 cells HPF (0-5); Polychromasia SLIGHT = 2-3 cells HPF (0-2); Total Cell Count 101
[2023-02-27 07:28] LABS: Anion Gap 15 mmol/L (10-20); BUN (Urea Nitrogen) 44 mg/dL (9.8-20.1); Calc. Creatinine Clearance 58 mL/min (70-130); Calcium 8.2 mg/dL (7.8-10.44); Carbon Dioxide 22 mmol/L (23-31); Chloride 95 mmol/L (98-107); Estimated GFR 56; Glucose 181 mg/dL (83-110); Magnesium 3.6 mg/dL (1.6-2.6); Phosphorus 4.5 mg/dL (2.3-4.7); Sodium 127 mmol/L (136-145)
[2023-02-27] MEDS: NIFEdipine XL 30 MG ER.TAB PO SCH (09:16)
[2023-02-27] MEDS: Aspirin Chewable 81 MG TAB PO SCH (09:16)
[2023-02-27] MEDS: Senokot S 8.6-50 MG TAB PO SCH ×2 (09:16→21:16)
[2023-02-27] MEDS: Polyethylene Glycol 3350 17 GM Packet PO SCH (09:16)
[2023-02-27] MEDS: Amiodarone 200 MG TAB PO SCH (09:17)
[2023-02-27] MEDS: Cholecalciferol 1,000 UNITS (25 MCG) TAB PO SCH (09:17)
[2023-02-27] MEDS: Apixaban 5 MG TAB PO SCH ×2 (09:17→21:17)
[2023-02-27] MEDS: Atorvastatin Calcium 40 MG TAB PO SCH (09:17)
[2023-02-27] MEDS: Cefepime 1 GM in Sodium Chloride 0.9% 100 ML IVPB SCH ×2 (09:21→21:17)
[2023-02-27 11:15] LABS: ALT (SGPT) 11 U/L (8-55); AST (SGOT) 18 U/L (5-34); Albumin 2.8 g/dL (3.4-4.8); Alkaline Phosphatase 100 U/L (40-110); Anion Gap 14 mmol/L (10-20); BUN (Urea Nitrogen) 43 mg/dL (9.8-20.1); Bilirubin, Total 1.1 mg/dL (0.2-1.2); Calc. Creatinine Clearance 54 mL/min (70-130); Calcium 7.8 mg/dL (7.8-10.44); Carbon Dioxide 23 mmol/L (23-31); Chloride 95 mmol/L (98-107); Estimated GFR 51; Globulin 2.6 g/dL (2.4-3.5); Glucose 208 mg/dL (83-110); Potassium 5.2 mmol/L (3.5-5.1); Protein, Total 5.4 g/dL (5.8-8.1); Sodium 127 mmol/L (136-145)
[2023-02-27] MEDS ORDERED: Insulin Glargine 30 UNITS/0.3 ML VIAL SC ONE (11:20)
[2023-02-27] MEDS ORDERED: Piperacillin/Tazobactam 4.5 GM in Sodium Chloride 0.9% 100 ML IVPB SCH ×2 (12:00→18:00)
[2023-02-27] MEDS ORDERED: Piperacillin/Tazobactam 3.375 GM in Sodium Chloride 0.9% 100 ML IVPB SCH (13:45)
[2023-02-27] MEDS: Piperacillin/Tazobactam 3.375 GM in Sodium Chloride 0.9% 100 ML IVPB SCH (18:22)
[2023-02-27] MEDS: Insulin Glargine 30 UNITS/0.3 ML VIAL SC SCH (21:13)
[2023-02-27] MEDS: Cyanocobalamin (Vitamin B-12) 1,000 MCG TAB PO SCH (21:17)
[2023-02-27] MEDS: Melatonin 3 MG TAB PO SCH (21:17)
[2023-02-28] MEDS: Piperacillin/Tazobactam 3.375 GM in Sodium Chloride 0.9% 100 ML IVPB SCH ×3 (03:35→17:20)
[2023-02-28] MEDS: traMADol HCl 50 MG TAB PO PRN ×3 (04:20→20:39)
[2023-02-28 05:44] LABS: Hematocrit 28.1 % (36.0-47.0); Hemoglobin 8.8 g/dL (12.0-16.0); Mean Corpuscular HGB CONC 31.3 g/dL (32.0-36.0); Mean Corpuscular Hemoglobin 29.4 pg (27.0-31.0); Mean Platelet Volume 10.4 fL (7.4-10.4); Platelet Count 446 10x3/uL (130-400); Red Blood Cell (RBC) Count 2.99 mill/uL (4.20-5.40); White Blood Cell (WBC) Count 18.6 10x3/uL (4.8-10.8)
[2023-02-28 05:47] LABS: Delete Auto Diff?? YES; Manual Diff?? YES
[2023-02-28] MEDS: Acetaminophen 325 MG TAB PO SCH ×4 (05:47→23:54)
[2023-02-28] MEDS: Acetaminophen/Codeine 30-300mg Tablet PO SCH ×4 (05:48→23:52)
[2023-02-28 06:03] LABS: Anion Gap 15 mmol/L (10-20); BUN (Urea Nitrogen) 46 mg/dL (9.8-20.1); Calc. Creatinine Clearance 52 mL/min (70-130); Calcium 8.6 mg/dL (7.8-10.44); Carbon Dioxide 22 mmol/L (23-31); Chloride 95 mmol/L (98-107); Estimated GFR 50; Glucose 180 mg/dL (83-110); Potassium 4.9 mmol/L (3.5-5.1); Sodium 127 mmol/L (136-145)
[2023-02-28 06:34] LABS: Band 19 % (5-11); CellaVision Operator ID LAB.CLH1; Eosinophils 3 % (0-10); Hypochromia SLIGHT = 6-15 cells HPF (0-5); Lymphocytes 7 % (21-51); Monocytes 6 % (0-10); Neutrophil 64 % (42-75); Platelet Adequacy Comment Platelets Increased; Polychromasia SLIGHT = 2-3 cells HPF (0-2); Reactive Lymphocytes 1 % (0-10); Total Cell Count 100
[2023-02-28] MEDS: HumaLOG 300 UNITS/3 ML VIAL SC PRN ×3 (07:00→17:22)
[2023-02-28] MEDS: NIFEdipine XL 30 MG ER.TAB PO SCH (09:19)
[2023-02-28] MEDS: Apixaban 5 MG TAB PO SCH ×2 (09:19→20:40)
[2023-02-28] MEDS: Aspirin Chewable 81 MG TAB PO SCH (09:19)
[2023-02-28] MEDS: Atorvastatin Calcium 40 MG TAB PO SCH (09:20)
[2023-02-28] MEDS: Amiodarone 200 MG TAB PO SCH (09:20)
[2023-02-28] MEDS: Furosemide 20 MG TAB PO SCH (09:20)
[2023-02-28] MEDS: Cefepime 1 GM in Sodium Chloride 0.9% 100 ML IVPB SCH ×2 (09:20→20:40)
[2023-02-28] MEDS: Senokot S 8.6-50 MG TAB PO SCH ×2 (09:20→23:34)
[2023-02-28] MEDS: Cholecalciferol 1,000 UNITS (25 MCG) TAB PO SCH (09:20)
[2023-02-28] MEDS: Polyethylene Glycol 3350 17 GM Packet PO SCH (09:21)
[2023-02-28] MEDS ORDERED: Electrolyte Replacement Protocol 1 EACH FS PRN (09:23)
[2023-02-28 10:34] LABS: Hematocrit 25.6 % (36.0-47.0); Mean Corpuscular HGB CONC 31.3 g/dL (32.0-36.0); Mean Corpuscular Hemoglobin 29.6 pg (27.0-31.0); Mean Corpuscular Volume 94.8 fl (78.0-98.0); Mean Platelet Volume 10.4 fL (7.4-10.4); Platelet Count 484 10x3/uL (130-400)
[2023-02-28] MEDS ORDERED: Iopamidol-370 76% 500 ML MDV (1 ML CHARGE) ONE (10:35)
[2023-02-28 10:43] LABS: Delete Auto Diff?? YES; Manual Diff?? YES
[2023-02-28 11:00] LABS: Troponin I Less than 0.010 ng/mL (< 0.028)
[2023-02-28 11:03] LABS: ALT (SGPT) 14 U/L (8-55); AST (SGOT) 25 U/L (5-34); Albumin 3.2 g/dL (3.4-4.8); Alkaline Phosphatase 129 U/L (40-110); Anion Gap 14 mmol/L (10-20); BUN (Urea Nitrogen) 47 mg/dL (9.8-20.1); Bilirubin, Total 1.3 mg/dL (0.2-1.2); Calc. Creatinine Clearance 50 mL/min (70-130); Calcium 8.4 mg/dL (7.8-10.44); Carbon Dioxide 23 mmol/L (23-31); Chloride 95 mmol/L (98-107); Estimated GFR 47; Globulin 3.1 g/dL (2.4-3.5); Glucose 155 mg/dL (83-110); Potassium 4.9 mmol/L (3.5-5.1); Protein, Total 6.3 g/dL (5.8-8.1); Sodium 127 mmol/L (136-145)
[2023-02-28 11:05] LABS: Anisocytosis SLIGHT = 6-15 cells HPF (0-5); Band 12 % (5-11); Burr Cells SLIGHT = 2-5 cells HPF (0-1); CellaVision Operator ID LAB.NR; Eosinophils 3 % (0-10); Hypochromia SLIGHT = 6-15 cells HPF (0-5); Lymphocytes 4 % (21-51); Monocytes 10 % (0-10); Neutrophil 71 % (42-75); Platelet Adequacy Comment Platelets Increased; Polychromasia MODERATE = 3-4 cells HPF (0-2); Total Cell Count 100
[2023-02-28] MEDS ORDERED: Mineral Oil ENEMA PR SCH (13:00)
[2023-02-28 17:34] LABS: ALT (SGPT) 13 U/L (8-55); AST (SGOT) 24 U/L (5-34); Albumin 2.8 g/dL (3.4-4.8); Alkaline Phosphatase 111 U/L (40-110); Anion Gap 17 mmol/L (10-20); BUN (Urea Nitrogen) 42 mg/dL (9.8-20.1); Bilirubin, Total 1.2 mg/dL (0.2-1.2); Calc. Creatinine Clearance 53 mL/min (70-130); Calcium 7.7 mg/dL (7.8-10.44); Carbon Dioxide 19 mmol/L (23-31); Chloride 97 mmol/L (98-107); Estimated GFR 50; Globulin 2.8 g/dL (2.4-3.5); Glucose 191 mg/dL (83-110); Potassium 4.7 mmol/L (3.5-5.1); Protein, Total 5.6 g/dL (5.8-8.1); Sodium 128 mmol/L (136-145)
[2023-02-28] MEDS: Carvedilol 6.25 MG TAB PO SCH (20:38)
[2023-02-28] MEDS: Cyanocobalamin (Vitamin B-12) 1,000 MCG TAB PO SCH (20:40)
[2023-02-28] MEDS: Insulin Glargine 30 UNITS/0.3 ML VIAL SC SCH (20:41)
[2023-02-28] MEDS: Melatonin 3 MG TAB PO SCH (23:51)
[2023-03-01] MEDS: Piperacillin/Tazobactam 3.375 GM in Sodium Chloride 0.9% 100 ML IVPB SCH ×3 (02:16→17:38)
[2023-03-01] MEDS: Acetaminophen/Codeine 30-300mg Tablet PO SCH ×4 (05:24→17:54)
[2023-03-01] MEDS: Acetaminophen 325 MG TAB PO SCH ×4 (05:24→17:54)
[2023-03-01 06:40] LABS: Hematocrit 22.4 % (36.0-47.0); Mean Corpuscular HGB CONC 31.3 g/dL (32.0-36.0); Mean Corpuscular Hemoglobin 29.8 pg (27.0-31.0); Mean Corpuscular Volume 95.3 fl (78.0-98.0); Mean Platelet Volume 10.2 fL (7.4-10.4); Platelet Count 421 10x3/uL (130-400); RBC Distribution Width 16.4 % (11.5-14.5); Red Blood Cell (RBC) Count 2.35 mill/uL (4.20-5.40); White Blood Cell (WBC) Count 15.6 10x3/uL (4.8-10.8)
[2023-03-01 06:42] LABS: Delete Auto Diff?? YES; Manual Diff?? YES
[2023-03-01 08:07] LABS: Band 10 % (5-11); CellaVision Operator ID LAB.GE; Eosinophils 1 % (0-10); Hypochromia SLIGHT = 6-15 cells HPF (0-5); Lymphocytes 4 % (21-51); Metamyelocyte 1 % (0-0); Monocytes 5 % (0-10); Neutrophil 79 % (42-75); Platelet Adequacy Comment Platelets Increased; Polychromasia MODERATE = 3-4 cells HPF (0-2); Total Cell Count 101
[2023-03-01] MEDS ORDERED: Furosemide 40 MG TAB PO SCH (09:00)
[2023-03-01] MEDS: NIFEdipine XL 30 MG ER.TAB PO SCH (09:05)
[2023-03-01] MEDS: Carvedilol 6.25 MG TAB PO SCH ×2 (09:05→20:49)
[2023-03-01] MEDS: Amiodarone 200 MG TAB PO SCH (09:05)
[2023-03-01] MEDS: Apixaban 5 MG TAB PO SCH ×2 (09:06→20:50)
[2023-03-01] MEDS: Atorvastatin Calcium 40 MG TAB PO SCH (09:06)
[2023-03-01] MEDS: Senokot S 8.6-50 MG TAB PO SCH ×2 (09:06→20:50)
[2023-03-01] MEDS: Aspirin Chewable 81 MG TAB PO SCH (09:06)
[2023-03-01] MEDS: Potassium Chloride 10 MEQ TAB PO SCH (09:06)
[2023-03-01] MEDS: Polyethylene Glycol 3350 17 GM Packet PO SCH (09:06)
[2023-03-01] MEDS: Cholecalciferol 1,000 UNITS (25 MCG) TAB PO SCH (09:06)
[2023-03-01] MEDS: Sodium Chloride 1 GM TAB PO SCH ×2 (13:19→20:48)
[2023-03-01] MEDS: Ipratropium/Albuterol 3 ML NEB NEB SCH ×2 (13:25→18:21)
[2023-03-01] MEDS: HumaLOG 300 UNITS/3 ML VIAL SC PRN (17:48)
[2023-03-01] MEDS: Acetaminophen/Codeine 30-300mg Tablet PO PRN (19:51)
[2023-03-01] MEDS: Melatonin 3 MG TAB PO SCH (20:49)
[2023-03-01] MEDS: Cyanocobalamin (Vitamin B-12) 1,000 MCG TAB PO SCH (20:50)
[2023-03-01] MEDS: Insulin Glargine 30 UNITS/0.3 ML VIAL SC SCH (22:45)
[2023-03-02] MEDS: Acetaminophen 325 MG TAB PO SCH ×4 (00:07→17:09)
[2023-03-02 00:26] LABS: Hematocrit 27.7 % (36.0-47.0); Hemoglobin 8.6 g/dL (12.0-16.0); Mean Corpuscular Hemoglobin 29.5 pg (27.0-31.0); Mean Corpuscular Volume 94.9 fl (78.0-98.0); Mean Platelet Volume 9.8 fL (7.4-10.4); Platelet Count 464 10x3/uL (130-400); RBC Distribution Width 16.5 % (11.5-14.5); Red Blood Cell (RBC) Count 2.92 mill/uL (4.20-5.40); White Blood Cell (WBC) Count 14.2 10x3/uL (4.8-10.8)
[2023-03-02 00:30] LABS: Delete Auto Diff?? YES; Manual Diff?? YES
[2023-03-02] MEDS: Ipratropium/Albuterol 3 ML NEB NEB SCH ×4 (00:41→19:33)
[2023-03-02 00:50] LABS: Band 13 % (5-11); CellaVision Operator ID LAB.CLH1; Eosinophils 2 % (0-10); Hypochromia SLIGHT = 6-15 cells HPF (0-5); Large Platelets 1.9 % (0-5); Lymphocytes 13 % (21-51); Macrocytosis SLIGHT = 6-15 cells HPF (0-5); Monocytes 8 % (0-10); Neutrophil 62 % (42-75); Nucleated RBC (Manual Ct) 2 % (0); Platelet Adequacy Comment Platelets Increased; Polychromasia SLIGHT = 2-3 cells HPF (0-2); Total Cell Count 103
[2023-03-02] MEDS: Acetaminophen/Codeine 30-300mg Tablet PO SCH ×4 (01:07→17:08)
[2023-03-02] MEDS: Piperacillin/Tazobactam 3.375 GM in Sodium Chloride 0.9% 100 ML IVPB SCH ×3 (01:51→17:09)
[2023-03-02] MEDS: Sodium Chloride 1 GM TAB PO SCH (05:29)
[2023-03-02 05:37] LABS: Hematocrit 28.6 % (36.0-47.0); Hemoglobin 8.9 g/dL (12.0-16.0); Mean Corpuscular HGB CONC 31.1 g/dL (32.0-36.0); Mean Corpuscular Hemoglobin 29.6 pg (27.0-31.0); Mean Platelet Volume 10.1 fL (7.4-10.4); Platelet Count 495 10x3/uL (130-400); RBC Distribution Width 16.8 % (11.5-14.5); Red Blood Cell (RBC) Count 3.01 mill/uL (4.20-5.40); White Blood Cell (WBC) Count 14.9 10x3/uL (4.8-10.8)
[2023-03-02 05:42] LABS: Delete Auto Diff?? YES; Manual Diff?? YES
[2023-03-02 06:05] LABS: Anion Gap 12 mmol/L (10-20); BUN (Urea Nitrogen) 21 mg/dL (9.8-20.1); Calc. Creatinine Clearance 73 mL/min (70-130); Calcium 7.8 mg/dL (7.8-10.44); Carbon Dioxide 23 mmol/L (23-31); Chloride 106 mmol/L (98-107); Estimated GFR 74; Glucose 129 mg/dL (83-110); Magnesium 2.5 mg/dL (1.6-2.6); Potassium 4.1 mmol/L (3.5-5.1); Sodium 137 mmol/L (136-145)
[2023-03-02 06:09] LABS: Band 15 % (5-11); CellaVision Operator ID LAB.CLH1; Eosinophils 2 % (0-10); Hypochromia SLIGHT = 6-15 cells HPF (0-5); Lymphocytes 6 % (21-51); Metamyelocyte 1 % (0-0); Monocytes 11 % (0-10); Myelocyte 2 % (0-0); Neutrophil 61 % (42-75); Platelet Adequacy Comment Platelets Increased; Polychromasia MODERATE = 3-4 cells HPF (0-2); Promyelocytes 1 % (0-0); Total Cell Count 103
[2023-03-02] MEDS: Acetaminophen/Codeine 30-300mg Tablet PO PRN ×2 (08:59→15:03)
[2023-03-02] MEDS: Apixaban 5 MG TAB PO SCH ×2 (09:00→20:46)
[2023-03-02] MEDS: Amiodarone 200 MG TAB PO SCH (09:00)
[2023-03-02] MEDS: Potassium Chloride 10 MEQ TAB PO SCH (09:00)
[2023-03-02] MEDS ORDERED: Furosemide 20 MG TAB PO SCH (09:00)
[2023-03-02] MEDS: Aspirin Chewable 81 MG TAB PO SCH (09:00)
[2023-03-02] MEDS: NIFEdipine XL 30 MG ER.TAB PO SCH (09:00)
[2023-03-02] MEDS: Atorvastatin Calcium 40 MG TAB PO SCH (09:00)
[2023-03-02] MEDS: Carvedilol 6.25 MG TAB PO SCH ×2 (09:00→20:48)
[2023-03-02] MEDS: Cholecalciferol 1,000 UNITS (25 MCG) TAB PO SCH (09:00)
[2023-03-02] MEDS: Polyethylene Glycol 3350 17 GM Packet PO SCH (09:01)
[2023-03-02] MEDS: Senokot S 8.6-50 MG TAB PO SCH ×2 (09:01→20:48)
[2023-03-02] MEDS: HumaLOG 300 UNITS/3 ML VIAL SC PRN (12:42)
[2023-03-02] MEDS: Melatonin 3 MG TAB PO SCH (20:46)
[2023-03-02] MEDS: Cyanocobalamin (Vitamin B-12) 1,000 MCG TAB PO SCH (20:48)
[2023-03-02] MEDS: Insulin Glargine 30 UNITS/0.3 ML VIAL SC SCH (20:48)
[2023-03-02 21:20] VITALS: BP 159/69; TEMP 98.6
== END 2023-03-02 21:10 | DRG 521 ==
LOC: ERS 18:58 → SURG A 20:34 → CCU 02-25 04:26 → SURG B 02-25 11:42
PROVIDERS: ADMIT Surgery; ATTEND Surgery
PROC: 0SRS019 Replacement of Left Hip Joint, Femoral Surface with Metal Synthetic Substitute, Cemented, Open Approach (ICD-10-PCS; principal; 2023-02-20)
PROC: 2W35X3Z Immobilization of Back using Brace (ICD-10-PCS; 2023-02-20)
PROC: 3E033XZ Introduction of Vasopressor into Peripheral Vein, Percutaneous Approach (ICD-10-PCS; 2023-02-20)
PROC: 30233N1 Transfusion of Nonautologous Red Blood Cells into Peripheral Vein, Percutaneous Approach (ICD-10-PCS; 2023-02-22)
PROC: 4A033R1 Measurement of Arterial Saturation, Peripheral, Percutaneous Approach (ICD-10-PCS; 2023-02-25)
DX: S72.002A Fracture of unspecified part of neck of left femur, initial encounter for closed fracture (principal); G93.41 Metabolic encephalopathy; J18.9 Pneumonia, unspecified organism; S32.019A Unspecified fracture of first lumbar vertebra, initial encounter for closed fracture; N17.9 Acute kidney failure, unspecified; D62 Acute posthemorrhagic anemia; N39.0 Urinary tract infection, site not specified; K91.89 Other postprocedural complications and disorders of digestive system; K56.7 Ileus, unspecified; S72.142A Displaced intertrochanteric fracture of left femur, initial encounter for closed fracture; I10 Essential (primary) hypertension; I48.91 Unspecified atrial fibrillation; E11.9 Type 2 diabetes mellitus without complications; W18.30XA Fall on same level, unspecified, initial encounter; E78.00 Pure hypercholesterolemia, unspecified; M79.89 Other specified soft tissue disorders; M75.32 Calcific tendinitis of left shoulder; R09.02 Hypoxemia; E87.5 Hyperkalemia; K59.00 Constipation, unspecified; K82.8 Other specified diseases of gallbladder; Z98.890 Other specified postprocedural states; Z88.5 Allergy status to narcotic agent; Z88.8 Allergy status to other drugs, medicaments and biological substances; Z79.01 Long term (current) use of anticoagulants
CPT/HCPCS: 36415; 36416; 36430; 36600; 70450; 71045; 71275; 72125; 72128; 72131; 72170; 74018; 74177; 80048; 80053; 81001; 82805; 83605; 83735; 83880; 84100; 84484; 85025; 85610; 85730; 86850; 86900; 86901; 87077; 87086; 87186; 93005; 94640; 96374; C1713; C1776; J0360; J0692; J1100; J1815; J1885; J2270; J2272; J2405; J2543; J2704; J3010; J3490; J7050; J7620; P9016; Q9967; S0028